=== PATIENT | male | born 1980 | race Caucasian/White ===

== ENCOUNTER 2019-01-29 01:32 | Observation (INO) | payer BC ==
[2019-01-29 03:51] VITALS: BMI 42.5
[2019-01-29] MEDS ORDERED: Morphine 2 MG/ML SYRINGE SLOW IVP PRN (03:53)
[2019-01-29] MEDS ORDERED: Bisacodyl 5 MG TAB PO PRN (03:54)
[2019-01-29] MEDS ORDERED: hydrALAZINE 20 MG/ML VIAL SLOW IVP PRN (04:03)
[2019-01-29] MEDS: Sodium Chloride 0.9% 1,000 ML IV SCH ×2 (04:15→14:34)
--- NOTE | 2019-01-29 04:42 | HP ---
PRIMARY CARE PROVIDER: Dr. Chad Calloway. CHIEF COMPLAINT: Abdominal pain. HISTORY OF PRESENT ILLNESS: Mr. Leigh is a pleasant 38-year-old gentleman, who was seen at [facility] on January 29, 2019 following transfer from [facility] in [place]. On January 25, he presented at the emergency room at [place] complaining of right flank pain. He was diagnosed with nephrolithiasis and discharged home with [place], Flomax, and ibuprofen. He reports that over the next couple of days the pain almost resolved, but then he had a recurrence of the pain yesterday. He reports that it is across the front of his abdomen, was around 8/10 earlier yesterday, but has now improved. He reports vomiting once. He denies any current nausea. He denies any chest pain. He denies any hematuria. REVIEW OF SYSTEMS: All systems were reviewed and found to be negative except for the pertinent positives mentioned above. PAST MEDICAL HISTORY: Hypertension. SURGICAL HISTORY: Middle finger surgery. FAMILY HISTORY: The patient denies any family history of premature coronary artery disease. SOCIAL HISTORY: The patient drinks alcohol occasionally. He denies recreational drug use. He chews tobacco. ALLERGIES: NO KNOWN DRUG ALLERGIES. CURRENT MEDICATIONS: 1. [place] 5/325 mg every 6 hours as needed. 2. Flomax 0.4 mg daily. 3. Motrin 800 mg as needed. PHYSICAL EXAMINATION: GENERAL: On examination, Mr. Leigh is awake and alert, not in acute distress. He is morbidly obese, with a BMI of 42.5. VITAL SIGNS: Blood pressure is 152/98, pulse 81, respiratory rate 18, and oxygen saturation 95% on room air. He is afebrile. EYES: No scleral icterus, no conjunctival pallor. ENT: Moist mucosal membranes. No oropharyngeal erythema or exudates. NECK: Supple, nontender, trachea is midline. RESPIRATORY: Accessory muscles of breathing are not active. Chest wall movements are symmetric bilaterally. Lungs are clear to auscultation without wheeze, rhonchi, or crepitations. CARDIOVASCULAR: S1 and S2 are heard, regular. Peripheral pulses palpable. NEUROLOGIC: Cranial nerves 2 through 12 are intact. MUSCULOSKELETAL: Power is 5/5 in all 4 extremities. ABDOMEN: Soft, distended, nontender. Bowel sounds are heard. SKIN: No rashes or subcutaneous nodules. LYMPHATIC: No cervical lymphadenopathy. PSYCHIATRIC: Normal mood, normal affect. The patient is oriented to person, place, and time. DIAGNOSTIC STUDIES: Mr. Leigh's labs and investigations were reviewed. CT scan of the abdomen and pelvis on January 25 showed 6 mm proximal right ureteral calculus causing mild right hydronephrosis. I am unable to find blood work from this presentation on his chart. ASSESSMENT AND PLAN: Mr. Leigh is a pleasant 38-year-old gentleman, who was seen at [facility] on January 29, 2019. His problem list includes: 1. Nephrolithiasis: Mr. Leigh is presenting with nephrolithiasis. He will be admitted to the hospital for pain management. Urology service is also being consulted because of mild hydronephrosis. 2. Hypertension: The patient is currently not on any antihypertensives. We will add p.r.n. hydralazine for blood pressure spikes secondary to pain. The patient will be advised to follow up with primary care provider for management of hypertension. I will start him on amlodipine during this hospitalization. 3. Morbid obesity: The patient to follow up with primary care provider for management of the same. Many thanks for allowing me to participate in your patient's care. Please feel free to contact me with any questions or concerns. LEVEL OF RISK: Moderate. LEVEL OF COMPLEXITY: Moderate. Job ID: [id number]
[2019-01-29] MEDS ORDERED: Amlodipine 5 MG TAB PO SCH (09:00)
[2019-01-29] MEDS ORDERED: Tamsulosin HCl 0.4 MG CAP PO SCH (09:00)
[2019-01-29] MEDS ORDERED: Enoxaparin Sodium 40 MG/0.4 ML SYRINGE SC SCH (09:00)
--- NOTE | 2019-01-29 12:03 | RAD ---
ABDOMEN 1 VIEW: Date: 01/29/19 HISTORY: Kidney stones, acute renal insufficiency. FINDINGS/IMPRESSION: There is contrast in the colon and urinary bladder. No definite suspicious calculi are seen. There is a significant amount of air in the colon. POS: OFF
--- NOTE | 2019-01-29 14:25 | CON ---
DATE OF CONSULTATION: 01/29/2019 This is a 38-year-old white male, I am seeing him in room 4412 today at [facility] in [place]. [facility] , and at that point, was in there with ureteral stone measured 6 mm. I have reviewed that CT scan, it was in the right proximal ureter. He went home on narcotic and Flomax, and some Motrin. He did fine and then yesterday, he had abdominal pain, kind of upper quadrant bilateral abdominal pain and went to the [facility] and was transferred here, had another CAT scan done on the [facility] that I do not have access to. Family says stone had moved and there was some mild hydro apparently. He has not been having fevers or chills. He has not had flank pain. He has not had pain radiating to the testicle. This is different type of pain. He did throw up after drinking some oral contrast for the CAT scan, but has otherwise been doing all right in that regard, except he was having some trouble with his bowels. He has had a couple bowel movements since he has been here and his abdominal pain is much better. He has not required a narcotic since he has been here. He has no prior history of stones. His surgical history had a small operation done in one of his fingers, otherwise negative. He probably has hypertension, although he does not take anything for it. He has been a little hypertensive here. He has no history of heart disease, pulmonary disease, or diabetes. He does not smoke. He does not have any known drug allergies. His creatinine was 1.15 a few days ago. I do not think it has been repeated as I do not believe I have access to it. We will from the [facility]. At the [facility], his white count was 11.7, his hemoglobin was 14.8. His creatinine was 1.9. Urinalysis showed 1 to 5 white cells, trace bacteria. I talked with him about placement of a stent as an option. He actually feels fine right now. The stent itself probably is going to give him some symptoms and I discussed all this with him. I think with him feeling as well as he is that, we probably should not put a stent in. I did tell him we could treat him with lithotripsy this Thursday here at [place] and have him pass the stone or he could even take a couple weeks to try to pass the stone. He is agreeable to this and we will contact him on Thursday, and get this posted for Thursday unless he prefer at that point to wait a couple weeks, in which case, we will just get an outpatient followup in a couple weeks. I think he should go home with a strainer. Continue Flomax. Stay off all aspirin and nonsteroidal products, take Tylenol, Extra Strength Tylenol or the hydrocodone, if he needs it for pain. We will get a KUB on him today to see if we can see the stone with a KUB. ADDENDUM: PHYSICAL EXAMINATION: He has no flank tenderness. No abdominal rebound or guarding. Some mild bilateral upper quadrant tenderness to deep palpation. Abdomen is otherwise soft. He is circumcised. There is no lesion. The testicles descended without mass or tenderness. Job ID: [id number]
[2019-01-29] MEDS ORDERED: Acetaminophen 650 MG Suppository PR PRN (15:01)
[2019-01-29] MEDS ORDERED: Polyethylene Glycol 3350 17 GM Packet PO SCH (15:30)
[2019-01-29] MEDS ORDERED: Acetaminophen 650 MG/20.3 ML UDCUP PO PRN (15:57)
[2019-01-29 20:08] VITALS: BP 148/90; TEMP 98
[2019-01-30] MEDS ORDERED: Polyethylene Glycol 3350 17 GM Packet PO SCH (09:00)
== END 2019-01-29 19:55 | disposition home or self-care (01) ==
LOC: ERS 01:32 → T4-A 02:34
PROVIDERS: ADMIT Internal Medicine; ATTEND Internal Medicine
DX: N13.2 Hydronephrosis with renal and ureteral calculous obstruction (principal); I10 Essential (primary) hypertension; N17.9 Acute kidney failure, unspecified; E66.01 Morbid (severe) obesity due to excess calories; Z68.41 Body mass index [BMI] 40.0-44.9, adult; Z79.899 Other long term (current) drug therapy; Z98.890 Other specified postprocedural states
CPT/HCPCS: 74018; 96360; 96361; 96372; 99284; G0378; J1650

== ENCOUNTER 2019-02-02 06:40 | Day surgery (SDC) | payer BC ==
[2019-02-01 11:22] VITALS: BMI 44.4
[2019-02-02] MEDS ORDERED: Fentanyl 100 MCG/2 ML VIAL ONE ×2 (09:06→12:06)
[2019-02-02] MEDS ORDERED: Iothalamate Meglumine 60% 50 ML VIAL FS ONE (09:07)
--- NOTE | 2019-02-02 09:11 | RAD ---
Exam: 1 view abdomen HISTORY: Renal calculi COMPARISON: 01/29/2019 Correlation: CT stone protocol 01/25/2019 FINDINGS: Nonspecific bowel gas pattern. No bowel distention or dilatation. No osseous abnormalities No suspicious densities projecting of the abdomen and pelvis. No radiographic evidence of a ureteral calculus or renal calculus. IMPRESSION: Nonspecific bowel gas pattern. Calcification noted on recent CT is difficult to appreciat e.
[2019-02-02 09:14] LABS: Platelet Count 251 thou/uL (130-400)
[2019-02-02] MEDS ORDERED: Midazolam HCl 2 mg/2 ml Vial ONE (09:17)
[2019-02-02 09:21] LABS: PTT 28.2 SEC (22.9-36.1); Prothrombin Time 12.7 SEC (12.0-14.7)
[2019-02-02 09:31] LABS: EPI 107 SEC (67-199)
[2019-02-02] MEDS ORDERED: SUGAMMADEX SODIUM 500 MG/5 ML VIAL ONE (10:22)
[2019-02-02] MEDS ORDERED: Furosemide 20 MG/2 ML VIAL ONE (10:30)
[2019-02-02] MEDS ORDERED: Bacitracin Zinc Ointment 30 gm TUBE ONE (11:15)
[2019-02-02] MEDS ORDERED: Morphine 4 MG/ML VIAL ONE (11:43)
[2019-02-02] MEDS ORDERED: Succinylcholine Chloride 20 MG/ML 10 ml SYRINGE FS ONE (12:00)
[2019-02-02] MEDS ORDERED: Lidocaine 2% PF 5 ML VIAL ONE (12:00)
[2019-02-02] MEDS ORDERED: PROPOFOL 200 MG/20 ML VIAL ONE (12:00)
[2019-02-02] MEDS ORDERED: Ondansetron PF 4 MG/2 ML Vial ONE (12:00)
[2019-02-02] MEDS ORDERED: Dexamethasone 20 MG/5 ML VIAL ONE (12:00)
[2019-02-02] MEDS ORDERED: diphenhydrAMINE 50 MG/ML VIAL ONE (12:00)
[2019-02-02] MEDS ORDERED: Rocuronium Bromide 10 MG/ML (10ML VIAL) ONE (12:00)
--- NOTE | 2019-02-02 12:08 | OP ---
DATE OF PROCEDURE: 02/02/2019 PREOPERATIVE DIAGNOSIS: Right ureteral stone. POSTOPERATIVE DIAGNOSIS: Right ureteral stone. PROCEDURES PERFORMED: Cystoscopy, right extracorporeal shockwave lithotripsy. ANESTHESIA: General. ESTIMATED BLOOD LOSS: Not recorded. FINDINGS: There is a 6-mm stone that was down in the right lower ureter. It was treated with 3000 shocks at level 6. It did appear to fragment well. A stent was not placed. A cysto was done because it was difficult to see this stone and it looked like it certainly moved from where it was on his last CT scan. The cysto showed that it was actually just in the distal ureter. We could see it with the fluoroscopy unit and so we did not put a stent up and we did not need to do a retrograde. DESCRIPTION OF PROCEDURE: After obtained written and verbal consent from the patient and he was taken to the operating suite. He was placed in a supine position on the treatment table. PlexiPulses placed in his lower extremities and turned on. He was given a general anesthetic and oral intubation. We used the C-arm to look for the stone and could not see it. There was a suggestion of a stone in the pelvis on the right side. It was difficult to see because of the patient's size. For this reason, he underwent cystoscopy with plan on doing a retrograde study. He was placed in the dorsal lithotomy position. He was sterilely prepped and draped for cystoscopy. Cystoscopy was done with a 22-Kaz[place] sheath. This was passed under direct vision through the male urethra into the bladder with aid of a 30-degree lens and video camera and monitor. We could see with the fluoroscopy unit and the scope that the stone was just at the very distal ureter. For that reason, we did not need to put a stent in or do a retrograde study. The bladder was drained and the instruments were removed. He was returned to a supine position. He was coupled to the lithotripsy unit from the anterior segment. He has a very large belly, so he had to press in quite a bit to get good coaptation and get the stone in the treatment focal point. Once that was accomplished, we started the shockwave and then went up from a low kV to level 5 and then after a few 100 shocks to level 6. Fluoroscopy was used intermittently to document stone fragmentation and to reposition as necessary. At about 1500 shocks, he was given 10 mg of Lasix to try to help pass the stone in the stone fragments. After 3000 shocks, the procedure was ended and he was uncoupled from the lithotripsy unit. He did have some bruising and a couple small blisters that were where the unit itself was coupling to his abdomen. Some triple antibiotic ointment and some 4 x 4's were placed over this. He was awakened, extubated, and taken by stretcher to recovery room. Job ID: [id number]
[2019-02-02] MEDS ORDERED: Ondansetron HCl/PF 4 MG/2 ML Vial IVP PRN (12:49)
[2019-02-02] MEDS ORDERED: Promethazine HCl 25 MG/ML VIAL IM/IV PRN (12:49)
[2019-02-02] MEDS ORDERED: Non-Formulary Medication 1 EACH PO PRN (12:49)
== END 2019-02-02 13:20 | disposition home or self-care (01) ==
LOC: SDC 06:40
PROVIDERS: ATTEND Urology
PROC: 0TF6XZZ Fragmentation in Right Ureter, External Approach (ICD-10-PCS; principal; 2019-02-02)
DX: N20.1 Calculus of ureter (principal); S30.821A Blister (nonthermal) of abdominal wall, initial encounter; Z79.899 Other long term (current) drug therapy; Y84.8 Other medical procedures as the cause of abnormal reaction of the patient, or of later complication, without mention of misadventure at the time of the procedure
CPT/HCPCS: 36415; 74018; 85576; 85610; 85730; C1758; J1100; J1200; J1940; J2001; J2250; J2270; J2405; J2704; J3010